=== PATIENT | male | born 1995 | race Caucasian/White ===

== ENCOUNTER 2022-09-10 21:18 | Emergency (ER) | payer OTHER, SELFPAY ==
[2022-09-10 21:20] VITALS: BP 140/99; PULSE 110; RESP 20; TEMP 37.4; O2SAT 97; BMI 34.9
--- NOTE | 2022-09-10 21:37 | [facility].EDDENT ---
Discharge Plan Disposition Patient Disposition: Home, Self-Care Prescriptions Prescriptions: New cephalexin [cephalexin] 500 mg capsule 500 mg PO TID Qty: 30 0RF ketorolac 10 mg tablet 10 mg PO Q8H PRN (Reason: pain) 3 Days Qty: 10 0RF Referrals Follow up/Referrals: Provider,Referral, [Primary Care Provider] - See instructions Clinical Impressions Clinical Impression: Dental caries, Infected dental caries Instructions Patient Instructions: DI for Dental Pain Discharge ED Provider: Deborah (ED)[facility] HPI General Chief complaint: Dental/Oral Stated complaint: dental pain Time Seen by Provider: 09/10/22 21:37 Mode of Arrival: Ambulatory Source of Information: Patient and Medical Record Limitations: No Limitations Description of Symptoms (Recalled from ER Triage Doc. by RN): Pt states he had a crown fall off his bottom right tooth about a month ago and he has had increased pain since yesterday. History of Present Illness HPI Narrative: pt with infected teeth rt lower and inc sx since yesterday Onset (ago): day(s) Severity: moderate Associated symptoms: gum swelling Treatment prior to arrival: none Related Data Previous Rx's Medication Instructions Recorded cephalexin 500 mg capsule 500 mg PO TID #30 caps 09/10/22 ketorolac 10 mg tablet 10 mg PO Q8H PRN pain 3 days #10 09/10/22 tabs Allergies Allergy/AdvReac Type Severity Reaction Status Date / Time No Known Allergies Allergy Unverified 03/08/17 14:12 [facility] Disclaimer: The information contained in this section may have been updated after the patient was seen, as this information can be updated by other users. Social History Smoking Status: Light tobacco smoker second hand exposure: No alcohol intake: never current occupational status: other Travel in the last 8 weeks: None housing: house ROS Obtained: Yes All systems reviewed & no additional complaints except as documented Physical Exam General General appearance: alert Head Head exam: normocephalic Eye Eye exam: Present PERRL and EOMI ENT ENT exam: Present mucous membranes moist Expanded ENT Exam Teeth exam: Present dental caries and gingival swelling Throat exam: Absent tonsillar exudate, R peritonsillar mass, L peritonsillar mass or muffled voice Neck Neck exam: Present trachea midline Respiratory Respiratory exam: Present normal lung sounds bilaterally; Absent respiratory distress Cardiovascular Cardiovascular exam: Present regular rate; Absent systolic murmur, rubs or gallop Abdominal Exam Abdominal exam: Present soft Extremities Exam Extremities exam: Present full ROM Neurological Exam Neurological exam: Present alert and CN II-XII intact Psychiatric Psychiatric exam: Present normal affect Skin Skin exam: Absent rash Medical Decision Making Medical Records Medical records reviewed: Yes I reviewed the patient's medical records. Reinaldo Inquiry Pt receiving controlled substance: No Vital Signs: 09/10/22 21:20 Temperature 99.4 F Temperature Source Oral Pulse Rate [Right] 110 H Respiratory Rate 20 Blood Pressure [Right Arm] 140/99 H Blood Pressure Mean [Right Arm] 112 Blood Pressure Source [Right Arm] Automatic Cuff Blood Pressure Position [Right Arm] Sitting 02 Sat by Pulse Oximetry 97 Oxygen Delivery Method Room Air Medical Decision Narrative: pt has dental infection - no abscess - pt will need to see dentist - will use abx at this time Critical Care Time Critical Care Time Critical Care Time: No Attestation: On , the high probability of a clinically significant, sudden or life threatening deterioration of the following system(s) required my full and direct attention, intervention and personal management. The time I documented below is in addition to time spent performing reported procedures but includes the following listed in this critical care notation.
[2022-09-10 21:54] VITALS: BP 124/102; PULSE 102; O2SAT 95
[2022-09-10 22:02] VITALS: BP 140/90; PULSE 91; RESP 18; TEMP 37.2
== END 2022-09-10 22:04 | disposition home or self-care (01) ==
PROVIDERS: Emergency Provider Emergency Medicine
DX: K02.9 Dental caries, unspecified (principal)
CPT/HCPCS: 96372; 99283; 99284; J0696